=== PATIENT | female | born 1990 | race Hispanic/Latino ===

== ENCOUNTER 2019-12-02 09:11 | Emergency (ER) | payer BC, OTHER ==
[~2019-12-02] VITALS: Ht 162.6 cm; Wt 121.2 kg
[2019-12-02] MEDS ORDERED: SODIUM CHLORIDE 0.9% 1000ML 1,000 ML IV SCH ×2 (11:15→13:30)
[2019-12-02] MEDS ORDERED: FENTANYL CITRATE/PF 100MCG/2 ML INJ IV ONE (11:15)
[2019-12-02] MEDS ORDERED: NORVASC10 MG PO ×2 (11:30→12:41)
[2019-12-02] MEDS ORDERED: FIORICET 50-301 EACH PO (11:30)
--- NOTE | 2019-12-02 12:32 | Diagnostic Imaging Report ---
Examination: CT head without contrast Clinical Indication: Headache. Technique: Transaxial noncontrast images from the skull base through the vertex were obtained. Sagittal and coronal reformatted images were done. Dose modulation, iterative reconstruction, and/or weight based adjustment of the mA/kV was utilized to reduce the radiation dose to as low as reasonably achievable. Comparison: None. Findings: Scalp: No abnormalities. Bones: Intact. No fractures. No blastic or lytic lesions. Brain sulci: Appropriate for patient's age. Ventricles: Normal in size and configuration. No hydrocephalus. Extra-axial space: No abnormalities. Parenchyma: No abnormal densities. No masses, hemorrhage, or acute or chronic cortical based vascular insults. Suprasellar region: No abnormalities. Craniocervical junction: The foramen magnum is patent. No Chiari one malformation. Impression: No intracranial abnormality. Signed by: Dr. Ana Cardona M.D. on 12/02/2019 12:29 PM
[2019-12-02] MEDS ORDERED: LABETALOL HCL 20 MG/4 ML SYRINGE IV STA (13:01)
[2019-12-02] MEDS ORDERED: SODIUM CHLORIDE 0.9% 50ML 50 ML ONE (13:25)
[2019-12-02] MEDS ORDERED: IOPAMIDOL 370 MG/ML 200 ML INFUS..BTL INJ ONE (13:25)
--- NOTE | 2019-12-02 13:43 | Diagnostic Imaging Report ---
EXAM: CXR 2 VIEW - [facility] DATE: 12/02/2019 12:00 AM INDICATION: Headache, shortness of breath COMPARISON: None FINDINGS: The trachea is midline. The lungs are symmetrically expanded without evidence for large focal consolidation, pneumothorax, or significant pleural effusion. The cardiac silhouette appears mildly prominent which may be secondary to technique. Mediastinal contours are unremarkable. No acute osseous abnormality is identified. IMPRESSION: No acute cardiopulmonary process identified. Signed by: Dr. Diego Dumont MD on 12/02/2019 1:39 PM
--- NOTE | 2019-12-02 15:02 | Diagnostic Imaging Report ---
CT of the chest, PE protocol, with contrast. History: Shortness of breath. Comparison: Chest radiograph from earlier 12/02/2019. Technique: Multidetector thin collimation CT scanning of the chest was performed from the level of the apices to the upper abdomen during the pulmonary arterial phase, after intravenous administration of contrast. Coronal and sagittal MIP reformations were obtained. RADIATION DOSE: Total DLP: 571.59 mGy*cm Dose modulation, iterative reconstruction, and/or weight based adjustment of the mA/kV was utilized to reduce the radiation dose to as low as reasonably achievable. FINDINGS: The thyroid and remaining visualized structures within the base of the neck demonstrate no significant abnormalities. There is adequate opacification of pulmonary arteries to level of the segmental arteries. The distal segmental and subsegmental arteries are poorly opacified and suboptimally evaluated. The main pulmonary artery measures 3.2 cm in maximal caliber. The pulmonary arteries distribute normally without evidence of a filling defect to suggest pulmonary thromboembolism to the level of the segmental arteries. The thoracic aorta is normal in course and caliber. The heart is not enlarged. No abnormal pericardial fluid is present. There is no abnormal axillary or hilar lymph node enlargement. Nonspecific mildly prominent mediastinal lymph nodes are noted which may be reactive. The trachea and proximal airways are patent. There is a small right and trace left pleural effusion. There are patchy groundglass opacities and interlobular septal thickening identified with a lower lung zone predominance. There is no evidence for large consolidation, pneumothorax, or suspicious nodule. Limited views of the upper abdomen demonstrate no significant abnormalities. The osseous structures demonstrate no evidence for acute fracture or destructive process. The extra thoracic soft tissues are unremarkable. IMPRESSION: No evidence of pulmonary thromboembolism to the level of the segmental arteries. Patchy groundglass opacities and interlobular septal thickening identified with a lower lobe predominance. Findings are nonspecific but can be seen in setting of edema or an atypical infectious/inflammatory process. Small right and trace left pleural effusions. Signed by: Dr. Diego Dumont MD on 12/02/2019 2:59 PM
[2019-12-02] MEDS ORDERED: AZITHROMYCIN250 MG PO (15:11)
[2019-12-02 16:13] VITALS: BP 161/91
--- NOTE | 2019-12-05 14:54 | NUR ---
Lab called and confirmed that her COVID-19 test was negative, pt contacted and informed of the result.
== END 2019-12-02 15:50 | disposition home or self-care (01) ==
LOC: FSED 09:11
DX: G44.211 Episodic tension-type headache, intractable (principal); R06.00 Dyspnea, unspecified; J12.9 Viral pneumonia, unspecified; J90 Pleural effusion, not elsewhere classified; I10 Essential (primary) hypertension
CPT/HCPCS: 70450; 71046; 71260; 80053; 81003; 81025; 85025; 85379; 87635; 93005; 96374; 99284; J3010; J7030; Q9967